=== PATIENT | female | born 1995 | race Asian ===

== ENCOUNTER 2018-11-04 02:38 | Emergency (ER) | payer OTHER, MEDICAID ==
[2018-11-04] MEDS ORDERED: Loperamide CAP* 2 MG PO ONE (03:02)
[2018-11-04] MEDS ORDERED: Hyoscyamine TAB* 0.125 MG PO ONE (03:02)
[2018-11-04] MEDS ORDERED: Ondansetron ODT TAB* 4 MG PO ONE (03:02)
--- NOTE | 2018-11-04 03:22 | ED ---
Abdominal Pain/Female - HPI Summary HPI Summary: This patient is a 23 year old F presenting to [facility] with a chief complaint of abdominal pain since 22:00 on 11/03/18. The patient rates the pain 3/10 in severity. Patient reports semi-watery diarrhea (5 times), increased flatulence after her last meal (steak, tomato egg soup, and yogurt at 21:00), and abdominal cramping. Patient denies vomiting, headache, blood in stool, and fever. She has had yogurt recently without diarrhea. Patient denies anyone else around her being sick. She is able to drink water. Pt is from [facility]. - History of Current Complaint Chief Complaint: EDAbdPain Stated Complaint: ABD PAIN PER PT. Time Seen by Provider: 11/04/18 03:01 Hx Obtained From: Patient Onset/Duration: Sudden Onset, Lasting Hours, Still Present Timing: Constant Severity Currently: Moderate Pain Intensity: 3 Pain Scale Used: 0-10 Numeric Radiates: No Character: Cramping Associated Signs and Symptoms: Positive: Diarrhea, Other: - Increased flatulence and abdominal cramping. Denies headache. Negative: Fever, Blood in Stool, Vomiting Allergies/Adverse Reactions: Allergies Allergy/AdvReac Type Severity Reaction Status Date / Time No Known Allergies Allergy Verified 11/04/18 03:00 PMH/Surg Hx/FS Hx/Imm Hx Endocrine/Hematology History: Denies: Hx Diabetes Respiratory History: Denies: Hx Asthma - Surgical History Surgery Procedure, Year, and Place: None Infectious Disease History: No Infectious Disease History: Denies: Traveled Outside the [place] in Last 30 Days - Family History Known Family History: Negative: Cardiac Disease, Diabetes - Social History Alcohol Use: None Substance Use Type: Reports: None Smoking Status (MU): Never Smoked Tobacco Review of Systems Negative: Fever Positive: Abdominal Pain, Diarrhea, Other - Increased flatulence. Denies blood in stool. . Negative: Vomiting Negative: Headache All Other Systems Reviewed And Are Negative: Yes Physical Exam - Summary Physical Exam Summary: Appearance: well appearing, no pain distress Skin: warm, dry, reflects adequate perfusion Head/face: normal Eyes: EOMI, RA ENT: mucous membranes moist Neck: supple, non-tender Respiratory: CTA, breath sounds present Cardiovascular: RRR, pulses symmetrical Abdomen: Increased bowel sounds, soft Bowel Sounds: present Musculoskeletal: normal, strength/ROM intact Neuro: normal, sensory motor intact, A&Ox3 Triage Information Reviewed: Yes Vital Signs On Initial Exam: Initial Vitals Temp Pulse Resp BP Pulse Ox 98.4 F 72 16 134/89 99 11/04/18 02:40 11/04/18 02:40 11/04/18 02:40 11/04/18 02:40 11/04/18 02:40 Vital Signs Reviewed: Yes Diagnostics - Vital Signs Vital Signs Temp Pulse Resp BP Pulse Ox 11/04/18 02:40 98.4 F 72 16 134/89 99 - Laboratory Lab Statement: Any lab studies that have been ordered have been reviewed, and results considered in the medical decision making process. Abdominal Pain Fem Course/Dx - Course Course Of Treatment: Patient acutely developed diarrhea with some abdominal cramping which is now better. She's had watery diarrhea without known cause. No history of food intolerances. Discharged with symptom control to follow-up with [facility]. - Diagnoses Differential Diagnosis: Positive: Other - Gastroenteritis, food intolerance such as celiac disease or lactose intolerance, dysentery Provider Diagnoses: Acute diarrhea Discharge - Sign-Out/Discharge Documenting (check all that apply): Patient Departure - D/C home Patient Received Moderate/Deep Sedation with Procedure: No - Discharge Plan Condition: Stable Disposition: HOME Prescriptions: Hyoscyamine Sulfate [Levsin-Sl] 0.125 mg SL Q4H PRN #20 tab.subl PRN Reason: cramping Loperamide CAP* [Imodium CAP*] 2 mg PO Q4H PRN #20 cap PRN Reason: Diarrhea Ondansetron ODT TAB* [Zofran 4 MG Odt TAB*] 4 mg PO Q8H PRN #10 tab.odt PRN Reason: Nausea Patient Education Materials: Nutrition Tips for Relief of Diarrhea (ED) Forms: *School Release Referrals: [facility] [Provider Group] Additional Instructions: Stay well-hydrated with Gatorade G2 or lots water. Return with fever, increased abdominal pain, unable to keep down fluids, weak or other concerns. Follow-up with [facility]. - Billing Disposition and Condition Condition: STABLE Disposition: Home - Attestation Statements Document Initiated by Scribe: Yes Documenting Scribe: Chucho Flowers Provider For Whom Scribe is Documenting (Include Credential): Dillon Hoffman MD Scribe Attestation: I, Chucho Flowers, scribed for Dillon Hoffman MD on 11/04/18 at 0444. Scribe Documentation Reviewed: Yes Provider Attestation: The documentation as recorded by the Chucho elizabeth accurately reflects the service I personally performed and the decisions made by me, Dillon Hoffman MD Status of Scribe Document: Viewed
[2018-11-04 04:06] VITALS: BP 127/77
== END 2018-11-04 04:06 | disposition home or self-care (01) ==
LOC: ED 02:38
DX: R19.7 Diarrhea, unspecified (principal)
CPT/HCPCS: 99283; A9270-GY